=== PATIENT | male | born 1970 | race Caucasian/White ===

== ENCOUNTER 2017-10-12 13:32 | Outpatient (CLI) | payer OTHER ==
--- NOTE | 2017-10-12 14:44 | XRAY Preliminary Report ---
Exam: XR RIBS W/PA CHEST LT IMPRESSION: No rib fracture or pneumothorax. [facility] SITE ID: [id number]
--- NOTE | 2017-10-12 14:44 | XRAY Report ---
EXAM: LEFT RIB RADIOGRAPHY EXAM DATE: 10/12/2017 02:09 PM. CLINICAL HISTORY: LEFT RIB PAIN. COMPARISON: None. TECHNIQUE: 1 view of the chest and 2 views of the ribs. FINDINGS: Bones: No rib fracture identified. Lungs: No focal opacities. No pneumothorax. No pleural effusions. Mediastinum: Heart and mediastinal contours are unremarkable. Other: None. IMPRESSION: No rib fracture or pneumothorax. [facility] Referring Provider Line: [phone] SITE ID: [id number]
--- NOTE | 2017-10-12 14:47 | XRAY Report ---
EXAM: RIGHT WRIST RADIOGRAPHY EXAM DATE: 10/12/2017 02:09 PM. CLINICAL HISTORY: RIGHT WRIST INJURY. COMPARISON: None. TECHNIQUE: 2 views. FINDINGS: Bones: Normal. No fractures or bone lesions. Joints: Normal. No subluxations. Soft Tissues: Normal. No soft tissue swelling. IMPRESSION: No fracture or subluxation. [facility] Referring Provider Line: [phone] SITE ID: [id number]
== END 2017-10-12 13:33 | disposition home or self-care (01) ==
LOC: DI 13:32
PROVIDERS: ATTEND Family Medicine
DX: S69.91XA Unspecified injury of right wrist, hand and finger(s), initial encounter (principal); S20.212A Contusion of left front wall of thorax, initial encounter

== ENCOUNTER 2017-12-14 12:24 | Outpatient (CLI) | payer OTHER ==
--- NOTE | 2017-12-16 08:58 | MRI Report ---
EXAM: RIGHT WRIST MRI WITHOUT CONTRAST EXAM DATE: 12/14/2017 01:46 PM. CLINICAL HISTORY: Pain in right wrist fracture. COMPARISON: Radiographs 11/21/2017, 12/04/2017. TECHNIQUE: Multiplanar, multisequence T1-weighted and fluid-sensitive sequences of the wrist without contrast. Other: None. FINDINGS: Bones and articular surfaces: There is a comminuted intra-articular fracture of the distal radius wit h associated marrow edema. Maximum articular surface step-off on sagittal images approximately 2.7 mm . Maximum distraction less than 2 mm. Patchy areas of subchondral marrow edema at the proximal capita te and radial aspect of the scaphoid. Tiny marginal osteophytes at the distal scaphoid and first CMC articulations. Some synovitis and small effusion within the wrist. Musculotendinous structures: There is ulnar subluxation of the extensor carpi ulnaris tendon superfic ial to the ulnar styloid. Flexor and extensor tendons otherwise appear intact without evidence of sig nificant tendinosis or tenosynovitis. Patchy edema within the distal forearm musculature adjacent to the distal radius fracture. Intrinsic musculature of the hand demonstrates no atrophy or fatty replac ement. Ligaments: There is no scapholunate or lunatotriquetral diastasis. Triangular fibrocartilage grossly intact. IMPRESSION: 1. Comminuted intra-articular fracture of the distal radius with maximum articular surface step off a pproximately 2.7 mm. 2. Subluxation of the extensor carpi ulnaris tendon consistent with sub sheath injury. [facility] MUSCULOSKELETAL RADIOLOGY SECTION Referring Provider Line: [phone] SITE ID: [id number]
== END 2017-12-14 12:25 | disposition home or self-care (01) ==
LOC: DI 12:24
PROVIDERS: ATTEND Orthopaedic Surgery
DX: S52.571A Other intraarticular fracture of lower end of right radius, initial encounter for closed fracture (principal)

== ENCOUNTER 2018-08-11 09:15 | Outpatient (CLI) | payer OTHER ==
[2018-08-11 14:59] LABS: BASOPHILS # (AUTO) 0.1 10^3/uL (0.0-0.1); BASOPHILS % (AUTO) 0.9 %; EOSINOPHILS # (AUTO) 0.3 10^3/uL (0.0-0.7); EOSINOPHILS % (AUTO) 4.8 %; LYMPHOCYTES # (AUTO) 1.7 10^3/uL (1.5-3.5); MEAN CORPUSCULAR HEMOGLOBIN 29.8 pg (27.0-31.0); MEAN CORPUSCULAR HGB CONC 35.6 g/dL (32.0-36.0); MEAN CORPUSCULAR VOLUME 83.8 fL (80.0-94.0); MEAN PLATELET VOLUME 9.8 fL (7.4-11.4); MONOCYTES # (AUTO) 0.5 10^3/uL (0.0-1.0); MONOCYTES % (AUTO) 8.3 %; NEUTROPHILS # (AUTO) 3.7 10^3/uL (1.5-6.6); PLT - PLATELET COUNT 251 10^3/uL (130-450); RED BLOOD COUNT 5.38 10^6/uL (4.70-6.10); RED CELL DISTRIBUTION WIDTH 13.2 % (12.0-15.0); WHITE BLOOD COUNT 6.3 x10^3/uL (4.8-10.8)
[2018-08-11 15:07] LABS: ALBUMIN 4.6 g/dL (3.2-5.5); ALBUMIN/GLOBULIN RATIO 1.9 (1.0-2.2); ALKALINE PHOSPHATASE 51 IU/L (42-121); ALT ALANINE AMINOTRANSFERASE 41 IU/L (10-60); AST ASPARTATE AMINOTRANSFERASE 18 IU/L (10-42); BILIRUBIN,TOTAL 1.2 mg/dL (0.2-1.0); BUN - BLOOD UREA NITROGEN 12 mg/dL (6-20); CALCIUM 9.1 mg/dL (8.5-10.3); CARBON DIOXIDE - CO2 23 mmol/L (21-32); CHLORIDE 109 mmol/L (101-111); CHOL/HDL RATIO 4.2 (<5.0); CHOLESTEROL 160 mg/dL; GFR - MDRD 80 (>89); GLUCOSE 83 mg/dL (70-100); HDL CHOLESTEROL 38 mg/dL; LDL CHOLESTEROL,CALCULATED 101 mg/dL; LDL/HDL RATIO 2.7 (<3.6); SODIUM 137 mmol/L (135-145); VLDL CHOLESTEROL 21 mg/dL
== END 2018-08-11 09:16 | disposition home or self-care (01) ==
LOC: LAB.WCP 09:15
PROVIDERS: ATTEND Family Medicine
DX: R51 Headache (principal); Z12.5 Encounter for screening for malignant neoplasm of prostate
CPT/HCPCS: 36415; 80053; 80061; 83721; 84153; 84443; 85025

== ENCOUNTER 2018-11-03 09:13 | Outpatient (CLI) | payer OTHER ==
--- NOTE | 2018-11-03 11:29 | XRAY Report ---
Reason: NONDISPLACED FRACTURE OF 5TH METATARSAL BONE,LF FT Procedure Date: 11/03/2018 Accession Number: [id number] / [id number] Procedure: WCP - Foot 3 View LT CPT Code: FULL RESULT: EXAM: LEFT FOOT RADIOGRAPHY EXAM DATE: 11/03/2018 09:28 AM. CLINICAL HISTORY: Nondisplaced fracture of 5th metatarsal bone, left foot. COMPARISON: FOOT 3 VIEW LT 10/02/2018 10:32 AM. TECHNIQUE: 3 views. FINDINGS: Bones: No fracture of the fifth metatarsal diaphysis is stable in alignment of the fracture line visible and no significant interval bone formation. Joints: Normal. No subluxations. Soft Tissues: Normal. No soft tissue swelling. IMPRESSION: Unchanged appearance of the known metatarsal fracture. [facility]
== END 2018-11-03 09:14 | disposition home or self-care (01) ==
LOC: DI.WCP 09:13
PROVIDERS: ATTEND Family Medicine
DX: S92.355D Nondisplaced fracture of fifth metatarsal bone, left foot, subsequent encounter for fracture with routine healing (principal)

== ENCOUNTER 2020-03-04 10:17 | Outpatient (CLI) | payer OTHER ==
--- NOTE | 2020-03-04 15:44 | XRAY Report ---
Reason: OSTEOMA Procedure Date: 03/04/2020 Accession Number: [id number] / [id number] Procedure: WCP - Knee 2 View RT CPT Code: Final Report FULL RESULT: PROCEDURE: Knee 2 View RT INDICATIONS: OSTEOMA TECHNIQUE: 2 views of the right knee(s) were acquired. COMPARISON: None. FINDINGS: Bones: No acute fractures or dislocations. No suspicious bony lesions. Specifically, no osseous abnormalities identified underlying the skin BB marker at the level of the head of the right fibula. Soft tissues: No joint effusion. No suspicious soft tissue calcifications. IMPRESSION: Right knee without acute fracture or malalignment. No suspicious soft tissue or intraosseous lesions. If there are persistent symptoms or clinical suspicion for pathology, then repeat radiographs or advanced imaging (CT, MRI, or bone scan) should be considered for further evaluation. Reviewed by: Jose Bean MD on 03/04/2020 3:43 PM PDT Approved by: Jose Bean MD on 03/04/2020 3:43 PM PDT Station ID: [id number]
== END 2020-03-04 23:59 | disposition home or self-care (01) ==
LOC: DI.WCP 10:17
PROVIDERS: ATTEND Family Medicine
DX: D16.9 Benign neoplasm of bone and articular cartilage, unspecified (principal)

== ENCOUNTER 2020-08-04 12:05 | Outpatient (CLI) | payer OTHER ==
--- NOTE | 2020-08-04 12:07 | XRAY Report ---
PROCEDURE: Nasal Bones INDICATIONS: NASAL PAIN, TRAUMA TECHNIQUE: 2 views of the nasal bones acquired. COMPARISON: None FINDINGS: Bones: No fractures or dislocations. Nasal septum is midline. Normal nasociliary nerve grooves are noted. Soft tissues: No suspicious soft tissue calcifications. IMPRESSION: Unremarkable nasal bone films Reviewed by: Soto Anaya MD on 08/04/2020 12:06 PM PST Approved by: Soto Anaya MD on 08/04/2020 12:06 PM PST Station ID: [id number]
== END 2020-08-04 23:59 | disposition home or self-care (01) ==
LOC: DI.N 12:05
PROVIDERS: ATTEND Nurse Practitioner
DX: J34.89 Other specified disorders of nose and nasal sinuses (principal)

== ENCOUNTER 2020-09-08 13:28 | Outpatient (CLI) | payer OTHER ==
--- NOTE | 2020-09-08 17:32 | XRAY Report ---
PROCEDURE: Knee 3 View LT INDICATIONS: KNEE PAIN, LEFT TECHNIQUE: 3 views of the left knee(s) were acquired. COMPARISON: None. FINDINGS: Bones: No fractures or dislocations. No suspicious bony lesions. Soft tissues: No significant joint effusion. Question of increased density in Hoffa's fat pad. No go spicious soft tissue calcifications. IMPRESSION: Minimal degenerative change. Question of increased density in Hoffa's fat pad. This could be due to trace fluid or soft tissue con tusion. Reviewed by: Farshad Evans MD on 09/08/2020 5:31 PM PST Approved by: Farshad Evans MD on 09/08/2020 5:31 PM PST Station ID: [id number]
== END 2020-09-08 13:29 | disposition home or self-care (01) ==
LOC: DI.N 13:28
PROVIDERS: ATTEND Family Medicine
DX: M17.12 Unilateral primary osteoarthritis, left knee (principal)

== ENCOUNTER 2020-11-16 07:00 | Outpatient (CLI) | payer OTHER ==
--- NOTE | 2020-11-16 14:52 | XRAY Report ---
PROCEDURE: Wrist 4 View RT INDICATIONS: RIGHT WRIST PAIN TECHNIQUE: 4 views of the wrist were acquired. COMPARISON: X-ray wrist 12/18/2017 FINDINGS: Bones: No acute fractures or dislocations. No suspicious bony lesions. Previous distal radial frac ture is noted. Radiocarpal narrowing is present. Scaphoid view: No visualized scaphoid fracture. Soft tissues: No suspicious soft tissue calcifications. IMPRESSION: Healed distal radial fracture. No visualized acute fracture or dislocation. However, occult injury ca nnot be excluded. Recommend short interval imaging follow-up in 7-10 days as clinically indicated for additional evaluation. Reviewed by: Miya Jacobs MD on 11/16/2020 2:50 PM PST Approved by: Miya Jacobs MD on 11/16/2020 2:50 PM PST Station ID: [id number]
== END 2020-11-16 23:59 | disposition home or self-care (01) ==
LOC: DI.WCP 07:00
PROVIDERS: ATTEND Family Medicine
DX: M25.531 Pain in right wrist (principal)

== ENCOUNTER 2021-05-25 08:33 | Outpatient (CLI) | payer OTHER ==
[2021-05-25 11:59] LABS: BASOPHILS # (AUTO) 0.1 10^3/uL (0.0-0.1); BASOPHILS % (AUTO) 0.9 %; BILIRUBIN,URINE NEGATIVE (NEGATIVE); EOSINOPHILS # (AUTO) 0.3 10^3/uL (0.0-0.7); EOSINOPHILS % (AUTO) 4.2 %; GLUCOSE, URINE (UA) NEGATIVE (NEGATIVE); HCT - HEMATOCRIT 48.4 % (42.0-52.0); HGB - HEMOGLOBIN 16.4 g/dL (14.0-18.0); KETONES,URINE (UA) NEGATIVE (NEGATIVE); LEUKOCYTE ESTERASE, URINE NEGATIVE (NEGATIVE); LYMPHOCYTES # (AUTO) 1.4 10^3/uL (1.5-3.5); LYMPHOCYTES % (AUTO) 21.8 %; MEAN CORPUSCULAR HEMOGLOBIN 29.7 pg (27.0-31.0); MEAN CORPUSCULAR HGB CONC 33.9 g/dL (32.0-36.0); MEAN CORPUSCULAR VOLUME 87.7 fL (80.0-94.0); MEAN PLATELET VOLUME 11.5 fL (7.4-11.4); MONOCYTES # (AUTO) 0.6 10^3/uL (0.0-1.0); MONOCYTES % (AUTO) 8.9 %; NEUTROPHILS # (AUTO) 4.1 10^3/uL (1.5-6.6); NITRITE,URINE NEGATIVE (NEGATIVE); OCCULT BLOOD,URINE NEGATIVE (NEGATIVE); PLT - PLATELET COUNT 242 10^3/uL (130-450); PROTEIN,URINE NEGATIVE (NEGATIVE); RED BLOOD COUNT 5.52 10^6/uL (4.70-6.10); RED CELL DISTRIBUTION WIDTH 12.1 % (12.0-15.0); UROBILINOGEN,URINE 0.2 (NORMAL) E.U./dL (NORMAL); WHITE BLOOD COUNT 6.4 x10^3/uL (4.8-10.8)
[2021-05-25 12:05] LABS: BACTERIA,URINE None Seen /HPF (None Seen); CLARITY,URINE CLEAR (CLEAR); RBC,URINE None Seen /HPF (0-5); SQUAMOUS EPITHELIAL CELL,UR NONE SEEN (<= Few); WBC,URINE 0-3 /HPF (0-3)
[2021-05-25 12:13] LABS: ALBUMIN 4.6 g/dL (3.2-5.5); ALBUMIN/GLOBULIN RATIO 1.4 (1.0-2.2); ALKALINE PHOSPHATASE 53 IU/L (42-121); ALT ALANINE AMINOTRANSFERASE 39 IU/L (10-60); AST ASPARTATE AMINOTRANSFERASE 29 IU/L (10-42); BILIRUBIN,TOTAL 1.6 mg/dL (0.2-1.0); BUN - BLOOD UREA NITROGEN 12 mg/dL (6-20); CALCIUM 9.8 mg/dL (8.5-10.3); CARBON DIOXIDE - CO2 31 mmol/L (21-32); CHLORIDE 100 mmol/L (101-111); CHOL/HDL RATIO 5.3 (<5.0); CHOLESTEROL 219 mg/dL; CREATININE 1.2 mg/dL (0.6-1.2); GFR - MDRD 64 (>89); GLUCOSE 92 mg/dL (70-100); HDL CHOLESTEROL 41 mg/dL; LDL CHOLESTEROL,CALCULATED 156 mg/dL; LDL/HDL RATIO 3.8 (<3.6); POTASSIUM 3.8 mmol/L (3.5-5.0); SODIUM 139 mmol/L (135-145); TOTAL PROTEIN 7.8 g/dL (6.7-8.2); TRIGLYCERIDES 108 mg/dL; VLDL CHOLESTEROL 22 mg/dL
[2021-05-25 12:23] LABS: THYROID STIMULATING HORMONE 1.72 uIU/mL (0.34-5.60)
== END 2021-05-25 08:34 | disposition home or self-care (01) ==
LOC: LAB.N 08:33
PROVIDERS: ATTEND Nurse Practitioner
DX: R53.83 Other fatigue (principal); Z13.220 Encounter for screening for lipoid disorders
CPT/HCPCS: 36415; 80053; 80061; 81001; 83721; 84443; 85025; 87086

== ENCOUNTER 2021-05-26 08:46 | Outpatient (CLI) | payer OTHER ==
--- NOTE | 2021-05-26 09:27 | XRAY Report ---
PROCEDURE: Foot 3 View RT INDICATIONS: RIGHT FOOT PAIN TECHNIQUE: 3 views of the foot were acquired. COMPARISON: None FINDINGS: Bones: There is borderline pes planus with weightbearing. Calcaneal pitch angle measures 17 degrees. Mild first MCP joint osteoarthritic changes are seen with joint space narrowing and subchondral scle rosis. No fractures or dislocations. No suspicious bony lesions. Soft tissues: No tibiotalar joint effusion. Achilles tendon appears normal. IMPRESSION: Mild first MTP joint osteoarthritis. Borderline pes planus with weightbearing. Calcaneal pitch angle measures 17 degrees. No fracture or dislocation. No gross bony erosive changes. Reviewed by: Gabriel Helm MD on 05/26/2021 9:26 AM PDT Approved by: Gabriel Helm MD on 05/26/2021 9:26 AM PDT Station ID: [id number]
== END 2021-05-26 08:47 | disposition home or self-care (01) ==
LOC: DI.N 08:46
PROVIDERS: ATTEND Nurse Practitioner
DX: M19.071 Primary osteoarthritis, right ankle and foot (principal); M21.41 Flat foot [pes planus] (acquired), right foot

== ENCOUNTER 2021-06-26 23:34 | Outpatient (CLI) | payer OTHER | END 2021-06-26 23:35 | disposition critical access hospital (66) | LOC: EMS 23:34 | DX: I49.9 Cardiac arrhythmia, unspecified (principal); R07.9 Chest pain, unspecified | CPT/HCPCS: A0425; A0427 ==

== ENCOUNTER 2021-06-26 23:54 | Observation (INO) | payer OTHER ==
[2021-06-26] MEDS ORDERED: SODIUM CHLORIDE 0.9% 1,000 ML IV STA (23:58)
--- NOTE | 2021-06-27 00:15 | ED Physician Documentation ---
History of Present Illness - Chief complaint Chief Complaint: Cardiac - History obtained from History obtained from: Patient - Additonal information Additional information: 50yM with pmh cardiac arrhythmia on 180 cardizem qid presents with chest discomfort a/w palpitations this evening, found to be in svt by ems and given 6 then 12 adenosine with resolution to NSR. patient states he has been feeling fine but forgot to take his cardizem today. denies cough, soa, fever, nausea, lightheadedness. palpitations improved s/p adenosine. Review of Systems Ten Systems: 10 systems reviewed and negative Constitutional: denies: Fever, Chills Cardiac: reports: Chest pain / pressure, Palpitations Respiratory: denies: Dyspnea PD PAST MEDICAL HISTORY - Present Medications Home Medications: Ambulatory Orders Medication Instructions Recorded Confirmed Pantoprazole Sodium 40 mg PO QID 06/27/21 06/27/21 diltiaZEM CD [Cardizem Cd] 180 mg PO QID 06/27/21 06/27/21 - Allergies Allergies/Adverse Reactions: Allergies Allergy/AdvReac Type Severity Reaction Status Date / Time No Known Drug Allergies Allergy Verified 06/27/21 00:02 PD ED PE NORMAL - Vitals Vital signs reviewed: Yes - General General: Alert and oriented X 3, No acute distress, Well developed/nourished - HEENT HEENT: Atraumatic, PERRL, EOMI - Neck Neck: Supple, no meningeal sign - Cardiac Cardiac: Other (tachycardic rate, regular rhythm) - Respiratory Respiratory: No respiratory distress, Clear bilaterally - Abdomen Abdomen: Non tender, Non distended - Derm Derm: Normal color, Warm and dry - Extremities Extremities: No deformity - Neuro Neuro: Alert and oriented X 3 - Psych Psych: Normal mood, Normal affect Results - Vitals Vitals: Vital Signs - 24 hr 06/26/21 06/27/21 06/27/21 23:59 00:02 00:32 Temperature 36.6 C 36.6 C Heart Rate 117 H 117 H 103 H Respiratory 14 14 18 Rate Blood Pressure 167/94 H 167/94 H 140/90 H O2 Saturation 98 98 96 06/27/21 06/27/21 06/27/21 01:02 01:30 02:00 Temperature Heart Rate 105 H 104 H 106 H Respiratory 18 19 14 Rate Blood Pressure 136/86 H 140/83 H 142/93 H O2 Saturation 97 96 96 06/27/21 06/27/21 06/27/21 02:30 03:00 03:30 Temperature Heart Rate 108 H 107 H 114 H Respiratory 19 20 20 Rate Blood Pressure 141/88 H 141/88 H 176/94 H O2 Saturation 98 98 98 06/27/21 06/27/21 06/27/21 04:00 04:30 05:00 Temperature Heart Rate 111 H 108 H 104 H Respiratory 22 19 19 Rate Blood Pressure 149/96 H 149/96 H 150/92 H O2 Saturation 97 96 96 06/27/21 06/27/21 06/27/21 05:30 06:00 06:30 Temperature Heart Rate 95 94 101 H Respiratory 18 17 19 Rate Blood Pressure 143/90 H 133/85 H 135/84 H O2 Saturation 97 96 97 Oxygen O2 Source Room air - EKG (time done) 0004 Rate: Rate (enter#) (108) Rhythm: Sinus tachycardia Baxter: Normal Intervals: Normal WA, Other (qrs 107) Ischemia: Normal ST segments - Labs Labs: Laboratory Tests 06/27/21 06/27/21 06/27/21 00:18 00:18 00:18 WBC 11.6 H RBC 5.16 Hgb 15.4 Hct 44.2 MCV 85.7 MCH 29.8 MCHC 34.8 RDW 12.0 Plt Count 221 MPV 11.1 Neut # (Auto) 11.0 H Lymph # (Auto) 0.4 L [place] # (Auto) 0.2 Eos # (Auto) 0.0 Baso # (Auto) 0.0 Absolute Nucleated RBC 0.00 Nucleated RBC % 0.0 Sodium 139 Potassium 3.7 Chloride 105 Carbon Dioxide 23 Anion Gap 11.0 BUN 18 Creatinine 0.9 Estimated GFR (MDRD) 90 Glucose 200 H Calcium 9.5 Total Bilirubin 1.1 H AST 23 ALT 39 Alkaline Phosphatase 48 Troponin I High Sens 24.6 H* Total Protein 7.1 Albumin 4.1 Globulin 3.0 Albumin/Globulin Ratio 1.4 Lipase 45 Nasal Adenovirus (PCR) Nasal B. parapertussis DNA (PCR) Nasal Coronavir 229E PCR Nasal Coronavir HKU1 PCR Nasal Coronavir NL63 PCR Nasal Coronavir OC43 PCR Nasal Enterovir/Rhinovir PCR Nasal Influenza B PCR Nasal Influenza A PCR Nasal Parainfluen 1 PCR Nasal Parainfluen 2 PCR Nasal Parainfluen 3 PCR Nasal Parainfluen 4 PCR Nasal RSV (PCR) Nasal B.pertussis DNA PCR Nasal C.pneumoniae (PCR) [place] Human Metapneumo PCR Nasal M.pneumoniae (PCR) Nasal SARS-CoV-2 (PCR) 06/27/21 06/27/21 06/27/21 02:08 04:10 04:16 WBC RBC Hgb Hct MCV MCH MCHC RDW Plt Count MPV Neut # (Auto) Lymph # (Auto) [place] # (Auto) Eos # (Auto) Baso # (Auto) Absolute Nucleated RBC Nucleated RBC % Sodium Potassium Chloride Carbon Dioxide Anion Gap BUN Creatinine Estimated GFR (MDRD) Glucose Calcium Total Bilirubin AST ALT Alkaline Phosphatase Troponin I High Sens 71.0 H* 93.9 H* Total Protein Albumin Globulin Albumin/Globulin Ratio Lipase Nasal Adenovirus (PCR) NOT DETECTED Nasal B. parapertussis DNA (PCR) NOT DETECTED Nasal Coronavir 229E PCR NOT DETECTED Nasal Coronavir HKU1 PCR NOT DETECTED Nasal Coronavir NL63 PCR NOT DETECTED Nasal Coronavir OC43 PCR NOT DETECTED Nasal Enterovir/Rhinovir PCR NOT DETECTED Nasal Influenza B PCR NOT DETECTED Nasal Influenza A PCR NOT DETECTED Nasal Parainfluen 1 PCR NOT DETECTED Nasal Parainfluen 2 PCR NOT DETECTED Nasal Parainfluen 3 PCR NOT DETECTED Nasal Parainfluen 4 PCR NOT DETECTED Nasal RSV (PCR) NOT DETECTED Nasal B.pertussis DNA PCR NOT DETECTED Nasal C.pneumoniae (PCR) NOT DETECTED [place] Human Metapneumo PCR NOT DETECTED Nasal M.pneumoniae (PCR) NOT DETECTED Nasal SARS-CoV-2 (PCR) NOT DETECTED PD MEDICAL DECISION MAKING - ED course ED course: 50yM p/w SVT in the field, resolved after adenosine, found to have mild elevation in trop on labs, with repeat upward trending. will send 3rd trop. d/w hospitalist Dr. Potts for admission. patient likely to need stress test tomorrow. (last stress >10 years ago). no bed availability per house registry rn due to staffing shortage overnight so will admit at 7am when daytime floor industrial staff nurse becomes available. Departure - Departure Disposition: ED Place in Observation Clinical Impression: Palpitations, SVT (supraventricular tachycardia), Anxiety, Chest discomfort Condition: Stable
[2021-06-27 00:23] LABS: BASOPHILS % (AUTO) 0.1 %; HCT - HEMATOCRIT 44.2 % (42.0-52.0); HGB - HEMOGLOBIN 15.4 g/dL (14.0-18.0); LYMPHOCYTES # (AUTO) 0.4 10^3/uL (1.5-3.5); LYMPHOCYTES % (AUTO) 3.3 %; MEAN CORPUSCULAR HEMOGLOBIN 29.8 pg (27.0-31.0); MEAN CORPUSCULAR HGB CONC 34.8 g/dL (32.0-36.0); MEAN CORPUSCULAR VOLUME 85.7 fL (80.0-94.0); MEAN PLATELET VOLUME 11.1 fL (7.4-11.4); MONOCYTES # (AUTO) 0.2 10^3/uL (0.0-1.0); PLT - PLATELET COUNT 221 10^3/uL (130-450); RED BLOOD COUNT 5.16 10^6/uL (4.70-6.10); WHITE BLOOD COUNT 11.6 x10^3/uL (4.8-10.8)
--- NOTE | 2021-06-27 00:26 | XRAY Report ---
PROCEDURE: Chest 1 View X-Ray INDICATIONS: Chest Pain TECHNIQUE: One view of the chest was acquired. COMPARISON: None. FINDINGS: Surgical changes and devices: None. Lungs and pleura: No pleural effusions or pneumothorax. Lungs are clear. Mediastinum: Mediastinal contours appear normal. Heart size is normal. Bones and chest wall: No suspicious bony lesions. Overlying soft tissues appear unremarkable. IMPRESSION: No acute cardiopulmonary abnormality. Reviewed by: Chase Tello MD on 06/27/2021 12:25 AM PDT Approved by: Chase Tello MD on 06/27/2021 12:25 AM PDT Station ID: [id number]
[2021-06-27 00:36] LABS: ALBUMIN 4.1 g/dL (3.2-5.5); ALBUMIN/GLOBULIN RATIO 1.4 (1.0-2.2); BILIRUBIN,TOTAL 1.1 mg/dL (0.2-1.0); CALCIUM 9.5 mg/dL (8.5-10.3); CREATININE 0.9 mg/dL (0.6-1.2); POTASSIUM 3.7 mmol/L (3.5-5.0); TOTAL PROTEIN 7.1 g/dL (6.7-8.2)
[2021-06-27] MEDS ORDERED: ASPIRIN 325 MG TABLET PO STA (01:44)
[2021-06-27] MEDS ORDERED: SODIUM CHLORIDE 0.9% 1,000 ML IV STA (01:45)
[2021-06-27] MEDS ORDERED: diltiaZEM 30 MG TABLET PO STA (02:05)
[2021-06-27] MEDS ORDERED: diltiaZEM CD 120 MG CAPSULE PO STA (02:11)
[2021-06-27] MEDS ORDERED: MAG HYDROX/AL HYDROX/SIMETH 30 ML UDC PO STA (03:29)
[2021-06-27] MEDS ORDERED: LORazepam 2 MG/ML VIAL IVP STA (03:46)
[2021-06-27 05:17] LABS: B. PARAPERTUSSIS- RESP PCR PAN NOT DETECTED; B. PERTUSSIS- RESP PCR PANEL NOT DETECTED; C. PNEUMONIAE- RESP PCR PANEL NOT DETECTED; CORONAVIRUS 229E-RESP PCR NOT DETECTED; CORONAVIRUS HKU1-RESP PCR NOT DETECTED; CORONAVIRUS NL63-RESP PCR NOT DETECTED; CORONAVIRUS OC43-RESP PCR NOT DETECTED; HUMAN METAPNEUMOVIRUS NOT DETECTED; INFLUENZA A- RESP PCR PANEL NOT DETECTED; INFLUENZA B - RESP PCR PANEL NOT DETECTED; M. PNEUMONIAE- RESP PCR PANEL NOT DETECTED; PARAINFLUENZA VIRUS 1 NOT DETECTED; PARAINFLUENZA VIRUS 2 NOT DETECTED; PARAINFLUENZA VIRUS 3 NOT DETECTED; PARAINFLUENZA VIRUS 4 NOT DETECTED; RHINOVIRUS/ENTEROVIRUS NOT DETECTED; RSV- RESP PCR PANEL NOT DETECTED; SARS-CoV-2 -RESP PCR PANEL NOT DETECTED
[2021-06-27] MEDS ORDERED: ONDANSETRON ODT 4 MG TABLET TL PRN (07:18)
[2021-06-27] MEDS ORDERED: SODIUM CHLORIDE FLUSH 0.9% 10 ML SYRINGE IVP PRN (07:18)
[2021-06-27] MEDS ORDERED: ACETAMINOPHEN 325 MG TABLET PO PRN (07:18)
[2021-06-27] MEDS ORDERED: ONDANSETRON 4 MG/2 ML VIAL IVP PRN (07:18)
[2021-06-27] MEDS ORDERED: ASPIRIN 325 MG TABLET PO SCH (09:00)
[2021-06-27] MEDS ORDERED: diltiaZEM CD 120 MG CAPSULE PO ONE (09:30)
[2021-06-27 09:36] LABS: CHOL/HDL RATIO 4.1 (<5.0); CHOLESTEROL 234 mg/dL; HDL CHOLESTEROL 57 mg/dL; LDL CHOLESTEROL,CALCULATED 161 mg/dL; LDL/HDL RATIO 2.8 (<3.6); TRIGLYCERIDES 82 mg/dL; VLDL CHOLESTEROL 16 mg/dL
--- NOTE | 2021-06-27 11:10 | HISTORY & PHYSICAL EXAMINATION ---
Chief Complaint - Chief Complaint Chief Complaint: palpitation History of Present Illness - Admitted From Admitted From:: Medical floor - History Obtained From Records Reviewed: [facility] History obtained from: Patient Exam Limitations: No - History of Present Illness HPI Comment/Other: This is a 50-years old male with a past medical history significant noted for SVT, GERD, Who present to ER complain of palpitation. Patient report in the home he tried to bead picker her daughter, He feel palpitation. He report when he put his daughter on his chest and shoulder, he feel uncomfortable on his neck, shoulder and left arm. Now he denies any chest pain. He denies palpitation now After he was treated in hospital. Patient denies fever, chill, shortness of breathing, syncope or lightheaded. Discussed the care plan with patient, We do not have provider to do stress test for patient. Patient report he is happy to followup with his PCP and do stress test as outpatient. Chest x-ray is unremarkable. Routine laboratory tests do show Patient had a slightly steady elevated troponin. WBC is 11.6. Initially patient had SVT in the ER, patient was given 6 then 12 adenosine with resolution to NSR by ER provider's report. Repeated EKG show pt has normal sinus rhythm without Ischemic change. Given above medical conditions, medical team was consulted for admission. Discussed the care goal with the patient, patient hope to have full code. History - Past Medical History Cardiovascular: reports: Arrhythmia Respiratory: reports: Asthma Neuro: reports: Migraines Endocrine/Autoimmune: reports: None GI: reports: GERD : reports: None Psych: reports: Depression, Anxiety, Panic attacks Musculoskeletal: reports: Rheumatoid arthritis Derm: reports: None MRSA Hx?: No - Family & Social History Family History: Mother: , Father: Family History Comment/Other: Patient reported his father at age 79, From pulmonary fibrosis. His mother at age 71 from diabetic complication and dementia. Social History Notes: Patient denies history of cigarette smoking, alcohol or drug issue. - POLST Patient has POLST: No Meds/Allgy - Home Medications Home Medications: Ambulatory Orders Medication Instructions Recorded Confirmed Pantoprazole Sodium 40 mg PO DAILY 06/27/21 06/27/21 diltiaZEM CD [Cardizem Cd] 180 mg PO DAILY 06/27/21 06/27/21 - Allergies Allergies/Adverse Reactions: Allergies Allergy/AdvReac Type Severity Reaction Status Date / Time No Known Drug Allergies Allergy Verified 06/27/21 00:02 Review of Systems - Constitutional Constitutional: denies: Fever, Chills, Weakness - Eyes Eyes: denies: Pain - Ears, Nose & Throat Ears, Nose & Throat: denies: Ear pain - Cardiovascular Cariovascular: reports: Palpitations. denies: Irregular heart rate, Chest pain, Lightheadedness, Syncope, Exertional dyspnea, Decr. exercise tolerance - Respiratory Respiratory: denies: Cough, Sputum production, Wheezing, SOB at rest, SOB with exertion - Gastrointestinal Gastrointestinal: denies: Abdominal pain, Diarrhea, Nausea, Vomiting - Genitourinary Genitourinary: denies: Dysuria - Musculoskeletal Musculoskeletal: denies: Muscle pain - Integumentary Integumentary: denies: Rash - Neurological Neurological: denies: General weakness, Focal weakness, Headache, Dizziness, Numbness, Pre-existing deficit, Abnormal gait, Seizures, Incoordination, Slurred speech - Psychiatric Psychiatric: denies: Depression Exam - Vital Signs Vital Signs: Vital Signs x48h Pulse Pulse Resp BP BP Pulse Ox 06/27/21 10:58 94 16 143/82 H 99 06/27/21 09:00 94 143/82 H 06/27/21 06:30 101 H 19 135/84 H 97 06/27/21 06:00 94 17 133/85 H 96 06/27/21 05:30 95 18 143/90 H 97 06/27/21 05:00 104 H 19 150/92 H 96 06/27/21 04:30 108 H 19 149/96 H 96 06/27/21 04:00 111 H 22 149/96 H 97 06/27/21 03:30 114 H 20 176/94 H 98 - Physical Exam General Appearance: positive: No acute distress, Alert. negative: Lethargic Eyes Bilateral: positive: Normal inspection, PERRL, No lid inflammation ENT: positive: ENT inspection nml, No signs of dehydration. negative: Purulent nasal drainage Neck: positive: Nml inspection, Trachea midline. negative: Tracheal deviation Respiratory: positive: Chest non-tender, No respiratory distress, Breath sounds nml. negative: Wheezes, Rales Cardiovascular: positive: Regular rate & rhythm, No murmur. negative: Tachycardia, Bradycardia, Systolic murmur, Diastolic murmur Peripheral Pulses: positive: 2+ Abdomen: positive: Non-tender, Nml bowel sounds, No distention. negative: Tenderness Back: positive: Nml inspection Skin: positive: Color nml, Warm, Dry. negative: Cyanosis Extremities: positive: Non-tender, Full ROM, Nml appearance. negative: Calf tenderness Neurologic/Psychiatric: positive: Oriented x3, Motor nml, Sensation nml, Mood/affect nml. negative: Weakness, Sensory loss, Facial droop, Slurred/abnml speech, Depressed mood/affect Sepsis Event Note (H) - Evaluation Current Stage of Sepsis: Ruled out Conclusion/Plan - Problem List (1) SVT (supraventricular tachycardia) Conclusion/Plan: Patient has hx of SVT, he take 180 mg Cardizem in his home to control his SVT. pt was given 6mg then 12 mg adenosine in ER. repeated EKG show NSR. pt's home cardizem increased to 240mg now but pt continue to complain of palpitation when he is on exertion. we order lower dosage of Metoprolol, tele Monitor overnight. Continue vital signs monitor (2) Elevated troponin Conclusion/Plan: Patient had elevated troponin From 25>>71>>94>>121, now is 120. Patient denies chest pain when I assessment the patient. Repeat EKG show normal sinus rhythm without ischemic change. It is likely demanded ischemia. Echo show normal EF and unremarkable. Unfortunately we do not have provider to do stress test for patient. Discussed with the patient, patient is happy to follow-up with his PCP to have stress test as outpatient. Patient was given aspirin, Lipitor, Patient had elevated cholesterol level. For patient's palpitation and SVT, patient also had metoprolol. (3) GERD (gastroesophageal reflux disease) Conclusion/Plan: Patient has a history of GERD, will resume Protonix (4) HLD (hyperlipidemia) Conclusion/Plan: Patient was found to have elevated cholesterol level, patient is prescribed Lipitor - Lab Results Fish Bones: 06/27/21 00:18 06/27/21 00:18 Core Measures - Anticipated LOS I expect patient to be DC'd or transferred within 96 hours.: Yes - DVT/VTE - Prophylaxis VTE/DVT Device ordered at admit?: Yes VTE/DVT Prophylaxis med ordered at admit?: Yes
[2021-06-27] MEDS: SODIUM CHLORIDE FLUSH 0.9% 10 ML SYRINGE IVP SCH ×2 (12:23→16:17)
[2021-06-27] MEDS: PANTOPRAZOLE 40 MG TABLET PO SCH (12:23)
[2021-06-27] MEDS: METOPROLOL SUCCINATE 25 MG TABLET PO SCH (16:41)
[2021-06-27] MEDS ORDERED: ATORVASTATIN 40 MG TABLET PO SCH (21:00)
[2021-06-27] MEDS ORDERED: SUMAtriptan 25 MG TABLET PO PRN (23:51)
[2021-06-27] MEDS ORDERED: ZOLPIDEM 5 MG TABLET PO PRN (23:52)
[2021-06-28] MEDS: SODIUM CHLORIDE FLUSH 0.9% 10 ML SYRINGE IVP SCH ×2 (00:13→09:19)
[2021-06-28 05:49] LABS: BASOPHILS % (AUTO) 0.2 %; EOSINOPHILS % (AUTO) 0.1 %; HCT - HEMATOCRIT 44.7 % (42.0-52.0); HGB - HEMOGLOBIN 14.9 g/dL (14.0-18.0); LYMPHOCYTES # (AUTO) 1.5 10^3/uL (1.5-3.5); LYMPHOCYTES % (AUTO) 12.5 %; MEAN CORPUSCULAR HGB CONC 33.3 g/dL (32.0-36.0); MEAN CORPUSCULAR VOLUME 87.1 fL (80.0-94.0); MEAN PLATELET VOLUME 11.2 fL (7.4-11.4); MONOCYTES # (AUTO) 0.7 10^3/uL (0.0-1.0); MONOCYTES % (AUTO) 6.3 %; NEUTROPHILS # (AUTO) 9.5 10^3/uL (1.5-6.6); NEUTROPHILS % (AUTO) 80.5 %; PLT - PLATELET COUNT 226 10^3/uL (130-450); RED BLOOD COUNT 5.13 10^6/uL (4.70-6.10); RED CELL DISTRIBUTION WIDTH 12.5 % (12.0-15.0); WHITE BLOOD COUNT 11.8 x10^3/uL (4.8-10.8)
[2021-06-28 06:00] LABS: CALCIUM 9.4 mg/dL (8.5-10.3); CREATININE 0.9 mg/dL (0.6-1.2); MAGNESIUM 2.2 mg/dL (1.7-2.8); POTASSIUM 3.8 mmol/L (3.5-5.0)
[2021-06-28] MEDS: PANTOPRAZOLE 40 MG TABLET PO SCH (06:14)
[2021-06-28] MEDS ORDERED: ASPIRIN CHEW 81 MG TABLET PO SCH (09:00)
[2021-06-28] MEDS ORDERED: diltiaZEM CD 240 MG CAPSULE PO SCH (09:00)
[2021-06-28] MEDS: METOPROLOL SUCCINATE 25 MG TABLET PO SCH (09:17)
[2021-06-28 11:44] VITALS: BP 136/83
--- NOTE | 2021-06-28 12:25 | Discharge Plan ---
Discharge Plan Problem Reviewed?: Yes Disposition: Home, Self Care Condition: Stable Prescriptions: diltiaZEM CD [Cardizem Cd] 240 mg PO DAILY #30 cap Atorvastatin [Lipitor] 40 mg PO QPM #30 tablet Aspirin Chewable [[place] H[place]ctor Aspirin] 81 mg PO DAILY #30 tablet Metoprolol Succinate [Toprol Xl] 25 mg PO DAILY #30 tablet Diet: Regular Activity Restrictions: Activity as Tolerated Shower Restrictions: No (fall precaution) Instruction Topics: Understanding Supraventricular Tachycardia SVT, Treatment for Supraventricular Tachycardia SVT, Exercise Stress Test, Nuclear Stress Test, Metoprolol tablets, Diltiazem tablets, Atorvastatin tablets, Aspirin ASA chewable tablets Health Concerns: SVT, chest discomfort/stress test Plan of Treatment: Your HR is well controlled now. You are prescribed new medication Metoprolol, and increased your home Cardizem dosage to 240mg daily. You may continue follow- up with your PCP to manage. You are prescribed baby aspirin and Lipitor. Your echo study was unremarkable, Your repeat EKG show normal sinus rhythm. He had a slightly elevated troponin, then became flat. You complained of discomfort at your chest and left arm at the admission, and now your symptoms are resolved. You are hemodynamic stable. You may follow-up with your PCP to have stress test as outpatient. Care Goals: Stabilization and improvement of your medical conditions Assessment: Discussed the care plan with you, answered your questions, you understood Additional Instructions or Follow Up instructions: You may follow-up with your PCP in 1 week, and have stress test as outpatient. Should your symptoms return or worsen, you may present to ER or call 911 for help No Smoking: If you smoke, Please STOP! Call for help. Follow-up with: Eric Persaud MD [Primary Care Provider] -
--- NOTE | 2021-06-28 12:38 | DISCHARGE SUMMARY ---
Discharge Summary Admit Date: 06/27/21 Discharge Date: 06/28/21 Discharging Provider: Gus Canada Primary Care Provider: Dr. Persaud Condition at Discharge: Stable Discharge Disposition: 01 Home, Self Care Discharge Facility Name: home - DIAGNOSES Discharge Diagnoses with Status of Each Condition: (1) SVT (supraventricular tachycardia) resolved. his HR is controlled at 70-80. Patient's home Cardizem dosage increases to 240 mg daily and Prescribed new medication metoprolol (2) Elevated troponin Patient had elevated troponin From 25>>71>>94>>121, now is 120, then 107.Patient denies chest pain. Repeat EKG show normal sinus rhythm without ischemic change. It is likely demanded ischemia. Echo show normal EF and unremarkable. Unfortunately we do not have provider to do stress test for patient. Discussed with the patient, patient is happy to follow-up with his PCP to have stress test as outpatient. Patient was Prescribed aspirin, Lipitor, Patient had elevated cholesterol level, and metoprolol. (3) GERD (gastroesophageal reflux disease) Stable, resume home Protonix (4) HLD (hyperlipidemia) Patient was found to have elevated cholesterol level, patient is prescribed Lipitor - HPI History of Present Illness: This is a 50-years old male with a past medical history significant noted for SVT, GERD, Who present to ER complain of palpitation. Patient report in the home he tried to shrimp picker her daughter, He feel palpitation. He report when he put his daughter on his chest and shoulder, he feel uncomfortable on his neck, shoulder and left arm. Now he denies any chest pain. He denies palpitation now After he was treated in hospital. Patient denies fever, chill, shortness of breathing, syncope or lightheaded. Discussed the care plan with patient, We do not have provider to do stress test for patient. Patient report he is happy to followup with his PCP and do stress test as outpatient. Chest x-ray is unremarkable. Routine laboratory tests do show Patient had a slightly steady elevated troponin. WBC is 11.6. Initially patient had SVT in the ER, patient was given 6 then 12 adenosine with resolution to NSR by ER provider's report. Repeated EKG show pt has normal sinus rhythm without Ischemic change. Given above medical conditions, medical team was consulted for admission. Discussed the care goal with the patient, patient hope to have full code. - ALLERGIES Allergies/Adverse Reactions: Allergies Allergy/AdvReac Type Severity Reaction Status Date / Time No Known Drug Allergies Allergy Verified 06/27/21 00:02 - MEDICATIONS Home Medications: Ambulatory Orders Medication Instructions Recorded Confirmed Pantoprazole Sodium 40 mg PO DAILY 06/27/21 06/27/21 Aspirin Chewable [[facility] 81 mg PO DAILY #30 tablet 06/28/21 Aspirin] Atorvastatin [Lipitor] 40 mg PO QPM #30 tablet 06/28/21 Metoprolol Succinate [Toprol Xl] 25 mg PO DAILY #30 tablet 06/28/21 diltiaZEM CD [Cardizem Cd] 240 mg PO DAILY #30 cap 06/28/21 - PHYSICAL EXAM AT DISCHARGE General Appearance: positive: No acute distress, Alert. negative: Lethargic Eyes Bilateral: positive: Normal inspection, PERRL, No lid inflammation ENT: positive: ENT inspection nml, No signs of dehydration. negative: Purulent nasal drainage Neck: positive: Nml inspection, Trachea midline. negative: Thyromegaly, Tra cheal deviation Respiratory: positive: Chest non-tender, No respiratory distress, Breath sounds nml. negative: Wheezes, Rales Cardiovascular: positive: Regular rate & rhythm, No murmur. negative: Tachycardia, Bradycardia, Systolic murmur, Diastolic murmur Peripheral Pulses: positive: 2+ Abdomen: positive: Non-tender, Nml bowel sounds, No distention. negative: Tenderness Back: positive: Nml inspection Skin: positive: Color nml, Warm, Dry. negative: Cyanosis, Diaphoresis, Pallor Extremities: positive: Non-tender, Full ROM, Nml appearance. negative: Calf tenderness Neurologic/Psychiatric: positive: Oriented x3, Motor nml, Sensation nml, Mood/affect nml. negative: Weakness, Sensory loss, Facial droop, Slurred/abnml speech, Depressed mood/affect - LABS Result Diagrams: 06/28/21 05:32 06/28/21 05:32 - SEPSIS Current Stage of Sepsis: Ruled out - FOLLOW UP Follow Up: Your HR is well controlled now. You are prescribed new medication Metoprolol, and increased your home Cardizem dosage to 240mg daily. You may continue follow- up with your PCP to manage. You are prescribed baby aspirin and Lipitor. Your echo study was unremarkable, Your repeat EKG show normal sinus rhythm. He had a slightly elevated troponin, then became flat. You complained of discomfort at your chest and left arm at the admission, and now your symptoms are resolved. You are hemodynamic stable. You may follow-up with your PCP to have stress test as outpatient. You may follow-up with your PCP in 1 week, and have stress test as outpatient. Should your symptoms return or worsen, you may present to ER or call 911 for help - TIME SPENT Time Spent in Discharge (Minutes): 30
== END 2021-06-28 13:36 | disposition home or self-care (01) ==
LOC: EDUNIT# → ED 23:54 → MS3 06-27 07:18
PROVIDERS: ADMIT Internal Medicine; ATTEND Internal Medicine
DX: I47.1 Supraventricular tachycardia (principal); R77.8 Other specified abnormalities of plasma proteins; K21.9 Gastro-esophageal reflux disease without esophagitis; E78.5 Hyperlipidemia, unspecified; Z20.822 Contact with and (suspected) exposure to COVID-19; Z79.899 Other long term (current) drug therapy
CPT/HCPCS: 0202U; 36415; 71045; 80048; 80053; 80061; 83690; 83735; 84443; 84484; 85025; 93005; 93306; 96374; 99284; 99285; A9270; G0378; J2060; 83721

== ENCOUNTER 2021-08-20 13:09 | Outpatient (CLI) | payer OTHER | END 2021-08-20 13:10 | disposition home or self-care (01) | LOC: RT 13:09 | PROVIDERS: ATTEND Internal Medicine | DX: J45.909 Unspecified asthma, uncomplicated (principal) | CPT/HCPCS: 94060; 94729 ==

== ENCOUNTER 2022-05-10 08:00 | Outpatient (CLI) | payer OTHER | END 2022-05-10 23:59 | disposition home or self-care (01) | LOC: LAB.N 08:00 | PROVIDERS: ATTEND Registered Nurse | DX: R30.0 Dysuria (principal); R39.9 Unspecified symptoms and signs involving the genitourinary system | CPT/HCPCS: 36415; 84153; 87086 ==

== ENCOUNTER 2022-05-16 16:31 | Outpatient (CLI) | payer OTHER ==
[2022-05-16 23:28] LABS: CHLAMYDIA TRACHOMATIS DNA NEGATIVE (NEGATIVE); NEISSERIA GONORRHOEAE DNA NEGATIVE (NEGATIVE)
== END 2022-05-16 16:32 | disposition home or self-care (01) ==
LOC: LAB.N 16:31
PROVIDERS: ATTEND Registered Nurse
DX: R30.0 Dysuria (principal)
CPT/HCPCS: 87491; 87591; 87661

== ENCOUNTER 2022-05-17 08:00 | Outpatient (CLI) | payer OTHER ==
[2022-05-17 19:39] LABS: CHLAMYDIA TRACHOMATIS DNA NEGATIVE (NEGATIVE); NEISSERIA GONORRHOEAE DNA NEGATIVE (NEGATIVE)
== END 2022-05-17 23:59 | disposition home or self-care (01) ==
LOC: LAB.N 08:00
PROVIDERS: ATTEND Registered Nurse
DX: R30.0 Dysuria (principal)
CPT/HCPCS: 87491; 87591; 87661

== ENCOUNTER 2022-06-14 09:29 | Outpatient (CLI) | payer OTHER ==
[2022-06-14 12:05] LABS: BASOPHILS # (AUTO) 0.1 10^3/uL (0.0-0.1); EOSINOPHILS # (AUTO) 0.5 10^3/uL (0.0-0.7); EOSINOPHILS % (AUTO) 6.7 %; HCT - HEMATOCRIT 45.5 % (42.0-52.0); HGB - HEMOGLOBIN 15.6 g/dL (14.0-18.0); LYMPHOCYTES # (AUTO) 1.7 10^3/uL (1.5-3.5); LYMPHOCYTES % (AUTO) 24.5 %; MEAN CORPUSCULAR HEMOGLOBIN 28.8 pg (27.0-31.0); MEAN CORPUSCULAR HGB CONC 34.3 g/dL (32.0-36.0); MEAN CORPUSCULAR VOLUME 84.1 fL (80.0-94.0); MONOCYTES # (AUTO) 0.6 10^3/uL (0.0-1.0); MONOCYTES % (AUTO) 9.1 %; NEUTROPHILS # (AUTO) 4.1 10^3/uL (1.5-6.6); NEUTROPHILS % (AUTO) 58.3 %; PLT - PLATELET COUNT 251 10^3/uL (130-450); RED BLOOD COUNT 5.41 10^6/uL (4.70-6.10); RED CELL DISTRIBUTION WIDTH 12.5 % (12.0-15.0); WHITE BLOOD COUNT 7.1 x10^3/uL (4.8-10.8)
[2022-06-14 12:40] LABS: ALBUMIN 4.2 g/dL (3.2-5.5); ALBUMIN/GLOBULIN RATIO 1.4 (1.0-2.2); ALKALINE PHOSPHATASE 74 IU/L (42-121); ALT ALANINE AMINOTRANSFERASE 45 IU/L (10-60); AST ASPARTATE AMINOTRANSFERASE 32 IU/L (10-42); BILIRUBIN,TOTAL 1.3 mg/dL (0.2-1.0); BUN - BLOOD UREA NITROGEN 9 mg/dL (6-20); CALCIUM 9.5 mg/dL (8.5-10.3); CARBON DIOXIDE - CO2 30 mmol/L (21-32); CHLORIDE 104 mmol/L (101-111); CHOL/HDL RATIO 3.3 (<5.0); CHOLESTEROL 127 mg/dL; CREATININE 0.9 mg/dL (0.6-1.2); GFR - MDRD 89 (>89); GLUCOSE 92 mg/dL (70-100); HDL CHOLESTEROL 39 mg/dL; LDL CHOLESTEROL,CALCULATED 71 mg/dL; LDL/HDL RATIO 1.8 (<3.6); POTASSIUM 3.8 mmol/L (3.5-5.0); SODIUM 139 mmol/L (135-145); TOTAL PROTEIN 7.3 g/dL (6.7-8.2); TRIGLYCERIDES 85 mg/dL; VLDL CHOLESTEROL 17 mg/dL
[2022-06-14 12:41] LABS: THYROID STIMULATING HORMONE 1.06 uIU/mL (0.34-5.60)
== END 2022-06-14 09:30 | disposition home or self-care (01) ==
LOC: LAB.N 09:29
PROVIDERS: ATTEND Internal Medicine
DX: I47.1 Supraventricular tachycardia (principal); E78.5 Hyperlipidemia, unspecified; Z12.5 Encounter for screening for malignant neoplasm of prostate
CPT/HCPCS: 36415; 80053; 80061; 83721; 84153; 84443; 85025

== ENCOUNTER 2024-04-01 10:51 | Outpatient (CLI) | payer OTHER ==
[2024-04-01 17:50] LABS: BASOPHILS # (AUTO) 0.1 10^3/uL (0.0-0.1); BASOPHILS % (AUTO) 1.1 %; EOSINOPHILS # (AUTO) 0.3 10^3/uL (0.0-0.7); HCT - HEMATOCRIT 48.6 % (42.0-52.0); LYMPHOCYTES # (AUTO) 1.3 10^3/uL (1.5-3.5); LYMPHOCYTES % (AUTO) 24.2 %; MEAN CORPUSCULAR HEMOGLOBIN 28.9 pg (27.0-31.0); MEAN CORPUSCULAR HGB CONC 32.9 g/dL (32.0-36.0); MEAN CORPUSCULAR VOLUME 87.7 fL (80.0-94.0); MEAN PLATELET VOLUME 11.9 fL (7.4-11.4); MONOCYTES # (AUTO) 0.5 10^3/uL (0.0-1.0); MONOCYTES % (AUTO) 9.4 %; NEUTROPHILS # (AUTO) 3.3 10^3/uL (1.5-6.6); NEUTROPHILS % (AUTO) 60.1 %; PLT - PLATELET COUNT 208 10^3/uL (130-450); RED BLOOD COUNT 5.54 10^6/uL (4.70-6.10); RED CELL DISTRIBUTION WIDTH 12.2 % (12.0-15.0); WHITE BLOOD COUNT 5.4 x10^3/uL (4.8-10.8)
[2024-04-01 18:28] LABS: ALBUMIN 4.3 g/dL (3.2-5.5); ALBUMIN/GLOBULIN RATIO 1.5 (1.0-2.2); ALKALINE PHOSPHATASE 57 IU/L (42-121); ALT ALANINE AMINOTRANSFERASE 30 IU/L (10-60); AST ASPARTATE AMINOTRANSFERASE 21 IU/L (10-42); BILIRUBIN,TOTAL 1.1 mg/dL (0.2-1.0); BUN - BLOOD UREA NITROGEN 14 mg/dL (6-20); CARBON DIOXIDE - CO2 32 mmol/L (21-32); CHLORIDE 106 mmol/L (101-111); CHOLESTEROL 135 mg/dL; GFR - MDRD 78 (>89); GLUCOSE 98 mg/dL (74-104); HDL CHOLESTEROL 45 mg/dL; LDL CHOLESTEROL,CALCULATED 74 mg/dL; LDL/HDL RATIO 1.6 (<3.6); POTASSIUM 4.5 mmol/L (3.5-4.5); SODIUM 141 mmol/L (135-145); TOTAL PROTEIN 7.1 g/dL (6.4-8.9); TRIGLYCERIDES 80 mg/dL; VLDL CHOLESTEROL 16 mg/dL
[2024-04-01 18:35] LABS: THYROID STIMULATING HORMONE 1.47 uIU/mL (0.34-5.60)
== END 2024-04-01 10:52 | disposition home or self-care (01) ==
LOC: LAB.N 10:51
PROVIDERS: ATTEND Internal Medicine
DX: I10 Essential (primary) hypertension (principal); E78.5 Hyperlipidemia, unspecified; N40.1 Benign prostatic hyperplasia with lower urinary tract symptoms; F41.0 Panic disorder [episodic paroxysmal anxiety]
CPT/HCPCS: 36415; 80053; 80061; 83721; 84153; 84443; 85025